=== PATIENT | male | born 1960 | race Caucasian/White ===

== ENCOUNTER → 2018-01-18 | Day surgery (SDC) | payer BC ==
[~2018-01-18] MED LIST: Cyclopentolate 1% Opth Drop 2 ML BOT ONE; Fentanyl 100 MCG/2 ML VIAL ONE; Fluorouracil 100 MG, Enoxaparin Sodium 25 MG, EPINEPHrine 0.3 MG in Ophthalmic Irrigati... IVPB SCH; Midazolam HCl 2 mg/2 ml Vial ONE; Phenylephrine 2.5% Ophth Soln 5 ML BOT ONE
--- NOTE | 2018-01-19 03:37 | OP ---
DATE OF SURGERY: 01/18/2018 PREOPERATIVE DIAGNOSIS: Rhegmatogenous retinal detachment, left eye. POSTOPERATIVE DIAGNOSIS: Rhegmatogenous retinal detachment, left eye. PROCEDURE: Pars plana vitrectomy and retinal detachment repair, left eye. SURGEON: Ryan Elaine MD ANESTHESIA: General endotracheal anesthesia. PROCEDURE IN DETAIL: The patient was identified in the preoperative holding area. Appropriate infor med consent for the planned surgical procedure on the left eye had been obtained. The patient was tr ansported to the operative suite where appropriate cardiopulmonary monitoring was established and gen eral endotracheal anesthesia was initiated. Retrobulbar block was placed. The patient was prepped a nd draped in the usual sterile for ophthalmic surgery on the left eye. Lid speculum was placed in th e left eye. The 25-gauge trocars were placed in conjunctiva and sclera supratemporally, inferotempor ally, and supranasally. Infusion line was placed inferotemporally. Light pipe and vitreous cutter w ere inserted into the eye. Core vitrectomy was performed. Tears were noted at the 10 o'clock, 12 o' clock, 2 o'clock, 4 o'clock positions. Posterior drain retinotomy was created along the inferotempor al arcade and a complete air fluid exchange was performed and 360 laser was placed using endolaser de mick device. A 15% perfluoropropane gas was infused into the eye. Sclerotomy sutured closed. Ret robulbar Kenalog and subconjunctival Ancef were placed. Antibiotic ointment was placed. Eye was pat ched and shielded. Patient was taken to the postoperative recovery unit in good condition having suf fered no immediate perioperative complications. DISCHARGE INSTRUCTIONS: The patient was instructed to keep patch and shield on, avoid lifting or mata ding, position left side down. Follow up in afternoon with Dr. Elaine.
== END ==
LOC: SDC 17:13
PROVIDERS: ATTEND Ophthalmology Retina Specialist
PROC: 08T53ZZ Resection of Left Vitreous, Percutaneous Approach (ICD-10-PCS; principal; 2018-01-18)
DX: H33.022 Retinal detachment with multiple breaks, left eye (principal); Z79.899 Other long term (current) drug therapy; Z79.84 Long term (current) use of oral hypoglycemic drugs
CPT/HCPCS: J0171; J1650; J2250; J3010; J9190